=== PATIENT | female | born 1970 | race Caucasian/White ===

== ENCOUNTER 2018-09-17 14:42 | Emergency (ER) | payer OTHER ==
[~2018-09-17] VITALS: Ht 165.1 cm; Wt 86.2 kg
[~2018-09-17 14:42] MED LIST: FLEXERIL PO; IBUPROFEN 800800 M1 PO
[2018-09-17] MEDS ORDERED: LISINOPRIL-HCT1 EAC1 PO (14:54)
[2018-09-17] MEDS ORDERED: AMLODIPINE BESY10 MG PO (14:54)
[2018-09-17] MEDS ORDERED: NEURONTIN600 MG PO (14:55)
[2018-09-17 15:01] LABS: ABSOLUTE BASOPHILS 0.1 thou/uL (0.0-0.2); ABSOLUTE EOSINOPHILS 0.1 thou/uL (0.0-0.7); ABSOLUTE LYMPHOCYTES 2.5 thou/uL (0.8-5.3); ABSOLUTE MONOCYTES 0.3 thou/uL (0.0-1.2); BASOPHILS 0.9 %; EOSINOPHILS 1.7 %; HEMATOCRIT 43.5 % (37.0-47.0); HEMOGLOBIN 14.7 gm/dL (12.0-15.0); LYMPHOCYTES 35.4 %; MCH 31.5 pg (26.0-34.0); MCHC 33.7 g/dL (28.0-37.0); MCV 93.5 fL (80.0-100.0); MONOCYTES 4.6 %; MPV 7.2 fl. (7.2-11.1); NUCLEATED RBCS 0 /100WBC; PLATELET COUNT* 304 thou/uL (150-400); POLYS 57.4 %; RBC 4.66 mil/uL (4.20-5.00); RDW-CV 14.2 % (10.5-14.5)
[2018-09-17 15:10] LABS: ANION GAP 12 mmol/L (7-16); BUN 6 mg/dL (7-18); CALCIUM 9.2 mg/dL (8.5-10.1); CHLORIDE 107 mmol/L (98-107); CO2 25 mmol/L (21-32); GLUCOSE 106 mg/dL (70-99); POTASSIUM 3.6 mmol/L (3.5-5.1); SODIUM 144 mmol/L (136-145)
[2018-09-17 15:24] LABS: ALBUMIN 3.7 g/dL (3.4-5.0); ALKALINE PHOSPHATASE 80 U/L (46-116); LIPASE 68 U/L (73-393); NT-PRO BRAIN NAT PEPTIDE 69 pg/mL (<300); SGOT 16 U/L (15-37); SGPT 24 U/L (30-65); TOTAL BILIRUBIN 0.3 mg/dL (<0.1-1.0); TOTAL PROTEIN 7.5 g/dL (6.4-8.2); TROPONIN-I LEVEL <0.06 ng/mL (<0.06)
[2018-09-17 17:44] VITALS: BP 135/88
--- NOTE | 2018-09-18 16:34 | EKG ---
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 : 1970 Requested By: Alex Ramírez Order Number: [id number] MD: Yaniv Wang Measurements Intervals [place] Rate: 80 P: 64 MT: 164 QRS: 14 QRSD: 99 T: 40 QT: 414 QTc: 478 Interpretive Statements Sinus rhythm Borderline low voltage, extremity leads Borderline prolonged QT interval No previous ECG available for comparison Electronically Signed On 09-18-2018 16:34:43 CDT by Yaniv Wang [email or web address] <ELECTRONICALLY SIGNED> By: Yaniv Wang MD, [facility] 09/18/18 1634 1650 49 Yaniv Wang MD, FACC /EPI
--- NOTE | 2018-09-18 16:34 | EKG ---
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 : 1970 Requested By: Alex Ramírez Order Number: [id number] MD: Yaniv Wang Measurements Intervals [place] Rate: 104 P: 74 KS: 160 QRS: 43 QRSD: 88 T: 55 QT: 360 QTc: 474 Interpretive Statements Sinus tachycardia Probable inferior infarct, old Lateral leads are also involved No previous ECG available for comparison Electronically Signed On 09-18-2018 16:34:31 CDT by Yaniv Wang [email or web address] <ELECTRONICALLY SIGNED> By: Yaniv Wang MD, [facility] 09/18/18 1634 1444 1444 Yaniv Wang MD, [facility] /EPI
== END 2018-09-17 17:45 | disposition home or self-care (01) ==
LOC: M.ERS 14:42
PROVIDERS: Emergency Medicine Emergency Medical Services
DX: F41.9 Anxiety disorder, unspecified (principal); I10 Essential (primary) hypertension; G89.29 Other chronic pain; Z88.1 Allergy status to other antibiotic agents; Z88.5 Allergy status to narcotic agent; Z91.040 Latex allergy status; Z88.8 Allergy status to other drugs, medicaments and biological substances